=== PATIENT | female | born 1960 | race Caucasian/White ===

== ENCOUNTER → 2017-12-26 09:34 | Outpatient (CLI) | payer OTHER ==
[2015-12-22 10:08] VITALS: BMI 31.8
[~2017-12-26 09:34] MED LIST: ALBUTEROL0.63 MG/3 INH; COZAAR100 MG PO; FAMOTIDINE10 MG PO; HYDROCODONE-APA1 TAB PO; NORVASC5 MG PO; OMEPRAZOLE20 M1 PO; PHENERGAN25 M1 PO; PROVENTIL HFA6.7 GM INH; REGLAN10 MG PO; RESTASIS EYE DR30 EA EACH EYE; SINGULAIR10 MG PO; SPIRIVA18 MCG INH; SYMBICORT 80-10.2 GM INH
== END | disposition home or self-care (01) ==
LOC: D.RT 09:00
DX: J45.909 Unspecified asthma, uncomplicated (principal)

== ENCOUNTER → 2018-03-17 16:29 | Outpatient (CLI) | payer OTHER ==
[2015-12-22 10:08] VITALS: BMI 31.8
[2018-03-17 17:19] LABS: BASOPHILS 0.3 % (0-2); EOSINOPHILS 2.1 % (0-7); HEMATOCRIT 40.8 % (36.0-48.0); HEMOGLOBIN 13.8 g/dL (12-16); IMMATURE GRANULOCYTES 0.2 % (0-5); LYMPHOCYTES 29.2 % (15-50); MCH 29.4 pg (26.0-34.0); MCHC 33.8 g/dL (31.0-37.0); MCV 86.8 fL (80.0-100.0); MEAN PLATELET VOLUME 9.9 fL (7.4-10.4); MONOCYTES 8.6 % (2-11); NEUTROPHILS 59.6 % (40-80); PLATELET COUNT 350 10x3/uL (130-400); RDW 13.5 % (11.5-14.5); WBC 5.8 10x3/uL (4.8-10.8)
== END | disposition home or self-care (01) ==
LOC: D.LAB 09:15
PROVIDERS: Internal Medicine Pulmonary Disease
DX: J44.9 Chronic obstructive pulmonary disease, unspecified (principal); J45.901 Unspecified asthma with (acute) exacerbation; M81.0 Age-related osteoporosis without current pathological fracture

== ENCOUNTER → 2018-10-28 08:03 | Outpatient (CLI) | payer OTHER ==
[2015-12-22 10:08] VITALS: BMI 31.8
== END | disposition home or self-care (01) ==
LOC: D.RT 09-09 14:00
PROVIDERS: ATTEND Internal Medicine Pulmonary Disease
DX: J44.9 Chronic obstructive pulmonary disease, unspecified (principal)